=== PATIENT | male | born 1970 | race Two or more races ===

== ENCOUNTER 2017-08-16 09:47 | Emergency (ER) | payer MEDICAID, OTHER ==
[~2017-08-16] VITALS: Ht 172.7 cm; Wt 74.8 kg
[2017-08-16] MEDS ORDERED: TETANUS-DIPTH-ACEL PERTUSSIS 0.5ML SYRG IM ONE (10:15)
[2017-08-16 12:15] VITALS: BP 125/77
[2017-08-16] MEDS ORDERED: cefTRIAXone 1GM/10ml IVPUSH 10 ML IV ONE (12:36)
[2017-08-16] MEDS ORDERED: cefTRIAXone W LIDOCAINE 1 GM IM IM ONE (12:45)
== END 2017-08-16 14:06 | disposition home or self-care (01) ==
LOC: ER 09:47
DX: S02.40EA Zygomatic fracture, right side, initial encounter for closed fracture (principal); V18.4XXA Pedal cycle driver injured in noncollision transport accident in traffic accident, initial encounter; Y93.89 Activity, other specified; Y99.8 Other external cause status; Y92.89 Other specified places as the place of occurrence of the external cause
CPT/HCPCS: 70450; 70486; 72125; 73080; 96372; J0696